=== PATIENT | male | born 1990 | race Caucasian/White ===

== ENCOUNTER 2019-10-04 11:33 | Emergency (ER) | payer MEDICAID ==
[~2019-10-04] VITALS: Ht 182.9 cm; Wt 86.2 kg
--- NOTE | 2019-10-04 11:48 | NUR ---
Dr Leslie at the bedside for MSE.
--- NOTE | 2019-10-04 11:58 | NUR ---
PT states not wanting to have a Ct done, Dr Leslie aware and cancelled the order.
[2019-10-04 12:02] VITALS: BP 121/69
--- NOTE | 2019-10-04 12:05 | NUR ---
Patient discharged to home in stable conditon. Written and verbal after care instructions given. Patient verbalizes understanding of instructions. Pt walked out of ER w/ steady gait.
== END 2019-10-04 12:07 | disposition home or self-care (01) ==
LOC: ER 11:33
DX: J32.9 Chronic sinusitis, unspecified (principal)
CPT/HCPCS: A4663